=== PATIENT | female | born 1995 | race Caucasian/White ===

== ENCOUNTER → 2017-08-28 | Outpatient (REF) | payer OTHER ==
[~2017-08-28] MED LIST: LOR5 PO; NO ROUTINE MEDS; PRO25 PO
== END ==
PROVIDERS: ATTEND Physician Assistant Medical
DX: R06.02 Shortness of breath (principal)
CPT/HCPCS: 85379

== ENCOUNTER 2017-09-06 23:27 | Emergency (ER) | payer OTHER ==
[~2017-09-06] VITALS: Ht 170.2 cm; Wt 84.8 kg
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
[2017-09-07 01:30] VITALS: BP 114/81
[2017-09-07] MEDS ORDERED: CEPH500C24 PO (01:39)
== END 2017-09-07 01:59 | disposition home or self-care (01) ==
LOC: ER 23:31
DX: S61.210A Laceration without foreign body of right index finger without damage to nail, initial encounter (principal)
CPT/HCPCS: 99282

== ENCOUNTER 2017-09-13 11:25 | Emergency (ER) | payer OTHER ==
[~2017-09-13] VITALS: Ht 170.2 cm; Wt 81.6 kg
[~2017-09-13 11:25] MED LIST changes: +CEPH500C24 PO
[2017-09-13 11:28] VITALS: BP 120/79
--- NOTE | 2017-09-13 11:41 | ER Report ---
History and Physical Time Seen By MD: 11:38 Hx. of Stated Complaint: STITCHES REMOVAL ON RIGHT INDEX FINGER HPI/ROS CHIEF COMPLAINT: Suture removal HISTORY OF PRESENT ILLNESS: Patient here for suture removal of sutures to right index finger. Sutures are intact for a one-week no interim problems. Allergies: Coded Allergies: No Known Allergies (Verified Allergy, Mild, 09/07/17) Home Meds Active Scripts Cephalexin Monohydrate (CEPHALEXIN) 500 Mg Cap, 500 MG PO Q6H, #20 CAP 0 Refills Prov:TRISTON ALLEN MD 09/07/17 Discontinued Reported Medications Promethazine Hcl (Phenergan) 25 Mg Tab, 25 MG PO Q6H Y, #15 0 Refills 06/11/09 Acetaminophen/Hydrocodone (Lortab 5/500) 5 Mg/500 Mg Tab, 1 TAB PO Q4H Y, #20 0 Refills 06/11/09 [No Routine Meds] No Conflict Check, 0 Refills 06/11/09 Past Medical/Surgical History Noncontributory Hx Substance Use Disorder: No Hx Alcohol Use: Yes (OCC.) Constitutional Vital Sign - Last 24 Hours 09/13/17 11:28 Temp 98.3 Pulse 100 Resp 16 B/P (MAP) 120/79 Pulse Ox 91 O2 Delivery Room Air Physical Exam Right index finger shows 4 intact sutures no evidence of wound dehiscence or infection. Plan will be suture removal by nurse. Medical Decision Making ED Course/Re-evaluation ED Course Sutures removed intact without difficulty. Decision to Disposition Date: Sep 13, 2017 Decision to Disposition Time: 11:39 Depart Departure Latest Vital Signs Vital Signs Date Time Temp Pulse Resp B/P (MAP) Pulse Ox O2 Delivery O2 Flow Rate FiO2 09/13/17 11:28 98.3 100 16 120/79 91 Room Air Impression: Primary Impression: Visit for suture removal Condition: Improved Disposition: HOME OR SELF-CARE Patient Instructions: Stitches Removal (DC) NELDA FREEMAN MD Sep 13, 2017 11:41
== END 2017-09-13 11:43 | disposition home or self-care (01) ==
LOC: ER 11:25
DX: S61.210D Laceration without foreign body of right index finger without damage to nail, subsequent encounter (principal)
CPT/HCPCS: 99282

== ENCOUNTER 2018-04-26 12:26 | Emergency (ER) | payer OTHER ==
--- NOTE | 2018-04-26 12:45 | ER Report ---
History and Physical Time Seen By MD: 12:41 Hx. of Stated Complaint: ABDOMINAL PAIN AND NAUSEA AFTER EATING FOR APPROX 3 DAYS. HPI/ROS CHIEF COMPLAINT: Abdominal pain HISTORY OF PRESENT ILLNESS: This is a 23-year-old female who presents to the emergency department for abdominal pain. Patient states that over the last 3 days or so she's had increased abdominal pain, somewhat localized around the umbilicus which does radiate into the back. Patient also states that now the pain has seemed to migrated to the left upper quadrant. Patient also states that she's had intermittent nausea, no vomiting. Patient also states that she's had increased abdominal pain after eating. Patient also states that she has roughly one week late on her menstrual cycle, she and her are trying to get . Patient states she did take a home test on Sunday which she thought had a faint positive but then disappeared. Patient took another test today which was negative. Patient denies vaginal discharge, no blood or spotting. No fevers, chills only when she has abdominal pain. She also has left flank pain. No dysuria. No headaches or rashes. REVIEW OF SYSTEMS: Constitutional: As above. Eyes: No discharge. ENT: No sore throat. Cardiovascular: No chest pain, no palpitations. Respiratory: No cough, no shortness of breath. Gastrointestinal: As above. Genitourinary: No hematuria. Musculoskeletal: No back pain. Skin: No rashes. Neurological: No headache. Allergies: Coded Allergies: raspberry (Verified Allergy, Severe, 04/26/18) No Known Allergies (Verified Allergy, Mild, 09/07/17) Home Meds Active Scripts Cephalexin Monohydrate (CEPHALEXIN) 500 Mg Cap, 500 MG PO Q6H, #20 CAP 0 Refills Prov:TRISTON ALLEN MD 09/07/17 Past Medical/Surgical History The patient has a past medical and surgical history of fractured right hip, concussion. Reviewed Nurses Notes: Yes Hx Substance Use Disorder: No Hx Alcohol Use: Yes (OCC.) Constitutional Vital Sign - Last 24 Hours 04/26/18 04/26/18 04/26/18 04/26/18 12:32 12:34 13:00 13:26 Temp 97.9 Pulse 125 83 Resp 18 14 B/P (MAP) 136/91 136/91 (106) 115/70 (85) 108/62 (77) Pulse Ox 93 95 O2 Delivery Room Air 04/26/18 04/26/18 04/26/18 04/26/18 13:30 14:00 14:30 14:43 Pulse 81 103 81 Resp 15 23 13 B/P (MAP) 116/61 (79) 126/80 (95) 115/65 (82) 111/68 (82) Pulse Ox 94 92 95 Physical Exam General Appearance: The patient is alert, has no immediate need for airway protection and no signs of toxicity. Eyes: Pupils equal and round no pallor or injection. ENT, Mouth: Mucous membranes are moist. Respiratory: There are no retractions, lungs are clear to auscultation. Cardiovascular: Regular rate and rhythm. Gastrointestinal: Abdomen is round, soft with tenderness to the left upper quadrant and epigastric region. Left lower quadrant mildly tender with deep palpation, no tenderness to the right upper and lower quadrants. Hypoactive bowel sounds. No masses or abdominal bruits. Left-sided CVA tenderness. Neurological: Alert and oriented 4. Moving all extremities. Following all commands. No focal neuro deficits. Skin: Warm and dry, no rashes. Musculoskeletal: Neck is supple non tender. Extremities are nontender, nonswollen and have full range of motion. DIFFERENTIAL DIAGNOSIS: After history and physical exam differential diagnosis was considered for abdominal pain in a female including but not limited to ovarian cyst, pelvic inflammatory disease, ovarian torsion, urinary tract infection, and appendicitis. Medical Decision Making Data Points Result Diagram: 04/26/18 1242 04/26/18 1242 Laboratory Hematology Test 04/26/18 12:30 04/26/18 12:42 Urine Color Yellow Urine Clarity Clear Urine pH 6.0 pH (4.8-9.5) Urine Specific [place] 1.027 Urine Protein Negative mg/dL (NEGATIVE) Urine Glucose (UA) Negative mg/dL (NEGATIVE) Urine Ketones Negative mg/dL (NEGATIVE) Urine Blood Negative (NEGATIVE) Urine Nitrite Negative (NEGATIVE) Urine Bilirubin Negative (NEGATIVE) Urine Urobilinogen 2.0 mg/dL (0.2-1.9) Urine Leukocyte Esterase Negative (NEGATIVE) Urine RBC None /HPF (0-2/HPF) Urine WBC 1 /HPF (0-5/HPF) Urine Squamous Epithelial Cells Many /LPF (</=FEW) Urine Bacteria Negative /HPF (NONE-FEW) Urine Mucus Few /HPF (NONE-FEW) Red Blood Count 5.44 M/uL (4.17-5.56) Mean Corpuscular Volume 89.0 fL (80.0-96.0) Mean Corpuscular Hemoglobin 30.0 pg (26.0-33.0) Mean Corpuscular Hemoglobin Concent 33.7 g/dL (32.0-36.0) Red Cell Distribution Width 13.0 % (11.5-14.5) Mean Platelet Volume 8.4 fL (7.2-11.1) Neutrophils (%) (Auto) 62.2 % (39.4-72.5) Lymphocytes (%) (Auto) 27.7 % (17.6-49.6) Monocytes (%) (Auto) 7.7 % (4.1-12.4) Eosinophils (%) (Auto) 1.5 % (0.4-6.7) Basophils (%) (Auto) 0.9 % (0.3-1.4) Nucleated RBC Relative Count (auto) 0.0 /100WBC Neutrophils # (Auto) 7.7 K/uL (2.0-7.4) Lymphocytes # (Auto) 3.4 K/uL (1.3-3.6) Monocytes # (Auto) 0.9 K/uL (0.3-1.0) Eosinophils # (Auto) 0.2 K/uL (0.0-0.5) Basophils # (Auto) 0.1 K/uL (0.0-0.1) Nucleated RBC Absolute Count (auto) 0.00 K/uL Sodium Level 139 mmol/L (137-145) Potassium Level 3.5 mmol/L (3.5-5.0) Chloride Level 103 mmol/L (98-107) Carbon Dioxide Level 24 mmol/L (22-31) Blood Urea Nitrogen 13 mg/dl (7-18) Creatinine 0.70 mg/dl (0.52-1.04) Glomerular Filtration Rate Calc > 60.0 Random Glucose 97 mg/dl (75-110) Calcium Level 9.3 mg/dl (8.4-10.2) Total Bilirubin 0.4 mg/dl (0.2-1.3) Aspartate Amino Transf (AST/SGOT) 29 U/L (0-35) Alanine Aminotransferase (ALT/SGPT) 42 U/L (0-56) Alkaline Phosphatase 91 U/L (0-126) Total Protein 8.0 g/dl (6.3-8.2) Albumin 4.5 g/dl (3.5-5.0) Lipase 49 U/L (23-300) Human Chorionic Gonadotropin, Qual Negative (NEGATIVE) Chemistry Test 04/26/18 12:30 04/26/18 12:42 Urine Color Yellow Urine Clarity Clear Urine pH 6.0 pH (4.8-9.5) Urine Specific [place] 1.027 Urine Protein Negative mg/dL (NEGATIVE) Urine Glucose (UA) Negative mg/dL (NEGATIVE) Urine Ketones Negative mg/dL (NEGATIVE) Urine Blood Negative (NEGATIVE) Urine Nitrite Negative (NEGATIVE) Urine Bilirubin Negative (NEGATIVE) Urine Urobilinogen 2.0 mg/dL (0.2-1.9) Urine Leukocyte Esterase Negative (NEGATIVE) Urine RBC None /HPF (0-2/HPF) Urine WBC 1 /HPF (0-5/HPF) Urine Squamous Epithelial Cells Many /LPF (</=FEW) Urine Bacteria Negative /HPF (NONE-FEW) Urine Mucus Few /HPF (NONE-FEW) White Blood Count 12.3 k/uL (4.5-11.0) Red Blood Count 5.44 M/uL (4.17-5.56) Hemoglobin 16.3 g/dL (12.0-16.0) Hematocrit 48.4 % (34.0-47.0) Mean Corpuscular Volume 89.0 fL (80.0-96.0) Mean Corpuscular Hemoglobin 30.0 pg (26.0-33.0) Mean Corpuscular Hemoglobin Concent 33.7 g/dL (32.0-36.0) Red Cell Distribution Width 13.0 % (11.5-14.5) Platelet Count 371 K/uL (150-450) Mean Platelet Volume 8.4 fL (7.2-11.1) Neutrophils (%) (Auto) 62.2 % (39.4-72.5) Lymphocytes (%) (Auto) 27.7 % (17.6-49.6) Monocytes (%) (Auto) 7.7 % (4.1-12.4) Eosinophils (%) (Auto) 1.5 % (0.4-6.7) Basophils (%) (Auto) 0.9 % (0.3-1.4) Nucleated RBC Relative Count (auto) 0.0 /100WBC Neutrophils # (Auto) 7.7 K/uL (2.0-7.4) Lymphocytes # (Auto) 3.4 K/uL (1.3-3.6) Monocytes # (Auto) 0.9 K/uL (0.3-1.0) Eosinophils # (Auto) 0.2 K/uL (0.0-0.5) Basophils # (Auto) 0.1 K/uL (0.0-0.1) Nucleated RBC Absolute Count (auto) 0.00 K/uL Glomerular Filtration Rate Calc > 60.0 Calcium Level 9.3 mg/dl (8.4-10.2) Total Bilirubin 0.4 mg/dl (0.2-1.3) Aspartate Amino Transf (AST/SGOT) 29 U/L (0-35) Alanine Aminotransferase (ALT/SGPT) 42 U/L (0-56) Alkaline Phosphatase 91 U/L (0-126) Total Protein 8.0 g/dl (6.3-8.2) Albumin 4.5 g/dl (3.5-5.0) Lipase 49 U/L (23-300) Human Chorionic Gonadotropin, Qual Negative (NEGATIVE) Urinalysis Test 04/26/18 12:30 Urine Color Yellow Urine Clarity Clear Urine pH 6.0 pH (4.8-9.5) Urine Specific [place] 1.027 Urine Protein Negative mg/dL (NEGATIVE) Urine Glucose (UA) Negative mg/dL (NEGATIVE) Urine Ketones Negative mg/dL (NEGATIVE) Urine Blood Negative (NEGATIVE) Urine Nitrite Negative (NEGATIVE) Urine Bilirubin Negative (NEGATIVE) Urine Urobilinogen 2.0 mg/dL (0.2-1.9) Urine Leukocyte Esterase Negative (NEGATIVE) Urine RBC None /HPF (0-2/HPF) Urine WBC 1 /HPF (0-5/HPF) Urine Squamous Epithelial Cells Many /LPF (</=FEW) Urine Bacteria Negative /HPF (NONE-FEW) Urine Mucus Few /HPF (NONE-FEW) EKG/Imaging Imaging EXAMINATION: CT abdomen with IV contrast CT pelvis with IV contrast HISTORY: Abdominal pain. TECHNIQUE: Spiral scan was through the abdomen and pelvis during injection of nonionic iodinated intravenous contrast. Sagittal and coronal reformatted images are also submitted. One of the following dose optimization techniques was utilized in the performance of this exam: Automated exposure control; adjustment of the mA and/or kV according to the patient's size; or use of an iterative reconstruction technique. Specific details can be referenced in the facility's radiology CT exam operational policy. CONTRAST: 75 mL of IV Isovue-370 COMPARISON: None available. FINDINGS: Lower chest: Mild streaky atelectasis in the lung bases. Liver / biliary: Negative. Pancreas: Negative. Spleen: Negative. Adrenal glands: Negative. Kidneys: Negative. Pelvic structures: 2.3 x 2.3 x 2.0 cm cyst in the left ovary with trace adjacent free fluid. Bowel: Normal appendix. Otherwise negative. Peritoneum / retroperitoneum / mesenteries: Trace free fluid adjacent to the left ovary. Otherwise negative. Vessels: Negative. Lymph nodes: Negative. Musculoskeletal / Body wall: Negative. IMPRESSION: 1. 2.3 x 2.3 x 2.0 cm cyst in the left ovary with trace adjacent free pelvic fluid. 2. Otherwise no acute abnormality in the abdomen or pelvis. Report Dictated By: Montez Escalona MD at 04/26/2018 2:16 PM Report E-Signed By: Montez Escalona MD at 04/26/2018 2:22 PM WSN:[id number] ED Course/Re-evaluation Clinical Indication for ER IV: Hydration, IV Access ED Course The patient was admitted to a room. A strep score obtained. Differential diagnoses were considered. An IV was started. A CBC, CMP were obtained. Lab studies unremarkable. Serum hCG was obtained, which was negative. Patient was given a 1 L normal saline bolus, 4 mg IV Zofran. Patient did have some mild throat itchiness after the IV contrast, 25 mg IV Benadryl was given which did resolve the itching. No hives were present. No stridor. I did recommend a CT of the abdomen and pelvis since the patient's hCG was negative. Patient was in agreement with this abdomen pelvis CT showing a left-sided ovarian cyst. I did review the results with the patient did tell her that this is the likely source of her discomfort. If no improvement within the next week or so follow-up with her [employer]PER[employer], should she have increased pain or have any other concerns she will return to the ER. 04/26/2018 1:32:33 pm I reviewed the laboratory studies with the patient more specifically the negative hCG. Given the patient's complaint of epigastric and left upper quadrant pain that seems to be intensifying my recommendation was a CT of the abdomen and pelvis, the patient was agreeable. 04/26/2018 2:01:55 pm the patient is back from CT, states her throat is slightly itchy following the IV contrast, no stridor or shortness of breath, was given 25 mg IV Benadryl. Decision to Disposition Date: Apr 26, 2018 Decision to Disposition Time: 14:37 Depart Departure Latest Vital Signs Vital Signs Date Time Temp Pulse Resp B/P (MAP) Pulse Ox O2 Delivery O2 Flow Rate FiO2 04/26/18 14:43 111/68 (82) 04/26/18 14:30 81 13 95 04/26/18 12:32 97.9 Room Air Impression: Primary Impression: Ovarian cyst, left Condition: Improved Disposition: HOME OR SELF-CARE Referrals: LILLIANA BYRNE MD (PCP) 1 Week Patient Instructions: Ovarian Cyst (ED) Additional Instructions: Your serum test was negative. Your left restudies are unremarkable. The CT is showing a left sided ovarian cyst, which is likely causing the discomfort. I would recommend following up with your [employer] OPERATOR within one week if there is no resolution of your pain. Return to the emergency for any other concerns or worsening symptoms. Drink plenty of water. Get plenty of rest. Take Tylenol for pain. MONTEZ DREW [employer] INTERCEPT CONTROLLER SUPERVISOR-[employer] Apr 26, 2018 12:45
[2018-04-26] MEDS ORDERED: NS(*) 0.9% 1000 ML BAG 1,000 ML IV ONE (12:53)
[2018-04-26] MEDS ORDERED: ONDANSETRON 4 MG/2 ML VIAL IVP ONE (12:55)
[2018-04-26 13:02] LABS: PLATELET COUNT, AUTOMATED 371 K/uL (150-450)
[2018-04-26] MEDS ORDERED: IOPAMIDOL 76% 75 ML INFUS BTL 75 ML ONE (13:39)
[2018-04-26] MEDS ORDERED: diphenhydrAMINE 50 MG/ML VIAL IVP ONE (14:00)
--- NOTE | 2018-04-26 14:26 | RADIOLOGY IMAGING REPORT ---
FACILITY: [facility] - [place] PATIENT NAME: Alanis Matias : 1995 MR: [id number] V: [id number] EXAM DATE: ORDERING PHYSICIAN: MONTEZ DREW TECHNOLOGIST: Location: [facility] [place] Patient: Alanis Matias : 1995 Visit/Account:[id number] Date of Sevice: 04/26/2018 EXAMINATION: CT abdomen with IV contrast CT pelvis with IV contrast HISTORY: Abdominal pain. TECHNIQUE: Spiral scan was through the abdomen and pelvis during injection of nonionic iodinated in travenous contrast. Sagittal and coronal reformatted images are also submitted. One of the following dose optimization techniques was utilized in the performance of this exam: Autom ated exposure control; adjustment of the mA and/or kV according to the patient's size; or use of an i terative reconstruction technique. Specific details can be referenced in the facility's radiology C T exam operational policy. CONTRAST: 75 mL of IV Isovue-370 COMPARISON: None available. FINDINGS: Lower chest: Mild streaky atelectasis in the lung bases. Liver / biliary: Negative. Pancreas: Negative. Spleen: Negative. Adrenal glands: Negative. Kidneys: Negative. Pelvic structures: 2.3 x 2.3 x 2.0 cm cyst in the left ovary with trace adjacent free fluid. Bowel: Normal appendix. Otherwise negative. Peritoneum / retroperitoneum / mesenteries: Trace free fluid adjacent to the left ovary. Otherwise ne gative. Vessels: Negative. Lymph nodes: Negative. Musculoskeletal / Body wall: Negative. IMPRESSION: 1. 2.3 x 2.3 x 2.0 cm cyst in the left ovary with trace adjacent free pelvic fluid. 2. Otherwise no acute abnormality in the abdomen or pelvis. Report Dictated By: Montez Escalona MD at 04/26/2018 2:16 PM Report E-Signed By: Montez Escalona MD at 04/26/2018 2:22 PM WSN:[id number]
[2018-04-26 14:43] VITALS: BP 111/68
== END 2018-04-26 14:57 | disposition home or self-care (01) ==
LOC: ER 12:45
DX: N83.202 Unspecified ovarian cyst, left side (principal)
CPT/HCPCS: 74177; 81001; 83690; 84703; 85025; 96361; 96374; 96375; 99284; J1200; J2405; J7030; Q9967; 82040; 82247; 82310; 82374; 82435; 82565; 82947; 84075; 84132; 84155; 84295; 84450; 84460; 84520

== ENCOUNTER 2019-01-12 15:15 | Emergency (ER) | payer OTHER ==
[2019-01-12 15:20] VITALS: BP 128/57
--- NOTE | 2019-01-12 15:23 | ER Report ---
History and Physical Time Seen By MD: 15:20 Hx. of Stated Complaint: toe nail pulled off left great toe HPI/ROS CHIEF COMPLAINT: toenail avulsion HISTORY OF PRESENT ILLNESS: pt was playing cornhole, wearing flip flops, when a friend stepped back, catching her toenail and bending it back, nearly ripping it off, just waiter/waitress captain. No active bleeding. Pain is moderate. No other injuries. REVIEW OF SYSTEMS: Respiratory: No cough, no dyspnea. Cardiovascular: No chest pain, no palpitations. Gastrointestinal: No vomiting, no abdominal pain. Musculoskeletal: No back pain. Remainder of the 14 system rev: Yes Allergies: Coded Allergies: raspberry (Verified Allergy, Severe, 04/26/18) No Known Allergies (Verified Allergy, Mild, 09/07/17) Uncoded Allergies: MRI contrast (Allergy, Intermediate, itchy throat, 01/12/19) Home Meds Discontinued Scripts Cephalexin Monohydrate (CEPHALEXIN) 500 Mg Cap, 500 MG PO Q6H, #20 CAP 0 Refills Prov:TRISTON ALLEN MD 09/07/17 Reviewed Nurses Notes: Yes Hx Substance Use Disorder: No Hx Alcohol Use: Yes (OCC.) Constitutional Vital Sign - Last 24 Hours 01/12/19 15:20 Temp 98.1 Pulse 109 Resp 20 B/P (MAP) 128/57 Pulse Ox 93 O2 Delivery Room Air Physical Exam General Appearance: The patient is alert, has no immediate need for airway protection and no current signs of toxicity. Eyes: Pupils equal and round no injection. Respiratory: normal respirations Cardiac: good perfusion Musculoskeletal: Extremities have full range of motion and are non tender. Skin: right great toe nearly completely avulsed, intact, no nailbed laceration. No foreign body DIFFERENTIAL DIAGNOSIS: After history and physical exam differential diagnosis was considered for toe fracture, foreign body, laceration, or other complication. Medical Decision Making ED Course/Re-evaluation ED Course After discussion of risks/benefits of digital block, I removed great toenail without anesthesia, followed by irrigation of nailbed, topical lidocaine, and fashioning of toenail splint to keep open cuticle. Wrapped toe and d/c with SRP's. Decision to Disposition Date: January 12, 2019 Decision to Disposition Time: 15:48 Depart Departure Latest Vital Signs Vital Signs Date Time Temp Pulse Resp B/P (MAP) Pulse Ox O2 Delivery O2 Flow Rate FiO2 5/26/19 15:20 98.1 109 20 128/57 93 Room Air Impression: Primary Impression: Toenail avulsion Condition: Improved Disposition: HOME OR SELF-CARE Referrals: LILLIANA BYRNE MD (PCP) 5 Days Patient Instructions: Toenail/Fingernail Removal (GEN) Additional Instructions: As we discussed, use lidocaine jel as needed for pain. You may also use ibuprofen, ice as needed. Change bandage in 3 days, apply bacitracin on toe bed, then change dressing daily. Return for signs of infection or any concerns. Problem Qualifiers Primary Impression: Toenail avulsion Encounter type: initial encounter Qualified Codes: S91.209A - Unspecified open wound of unspecified toe(s) with damage to nail, initial encounter NELDA ELY MD January 12, 2019 15:23
[2019-01-12] MEDS ORDERED: LIDOCAINE 2% JELLY 5 ML TUBE ONE (15:30)
== END 2019-01-12 15:53 | disposition home or self-care (01) ==
LOC: ER 15:21
DX: S91.202A Unspecified open wound of left great toe with damage to nail, initial encounter (principal)
CPT/HCPCS: 99283

== ENCOUNTER → 2019-01-22 | Outpatient (CLI) | payer OTHER ==
[~2019-01-22] MED LIST changes: +TRAM-420 PO
== END ==
LOC: LAB 15:55
PROVIDERS: ATTEND Surgery
DX: R53.83 Other fatigue (principal)
CPT/HCPCS: 36415; 84443

== ENCOUNTER → 2019-03-21 | Outpatient (CLI) | payer OTHER ==
[~2019-03-21] MED LIST changes: +PREN-127 PO
[2019-03-21 12:21] LABS: PLATELET COUNT, AUTOMATED 354 K/uL (150-450)
== END ==
LOC: LAB 08:08
PROVIDERS: ATTEND Obstetrics & Gynecology
DX: Z34.81 Encounter for supervision of other normal pregnancy, first trimester (principal)
CPT/HCPCS: 36415; 81001; 85025; 86592; 86703; 86762; 86850; 86900; 86901; 87088; 87340

== ENCOUNTER → 2019-03-28 | Outpatient (CLI) | payer OTHER | LOC: LAB 09:47 | PROVIDERS: ATTEND Obstetrics & Gynecology | DX: Z11.3 Encounter for screening for infections with a predominantly sexual mode of transmission (principal) | CPT/HCPCS: 87491; 87591 ==